=== PATIENT | male | born 1940 | race Caucasian/White ===

== ENCOUNTER 2022-11-29 20:50 | Inpatient (IN) | payer MEDICARE, OTHER ==
[2022-11-29 23:31] LABS: SARS-CoV-2 NAA Rapid Test Not Detected (NotDetected)
[2022-11-30] MEDS ORDERED: HumaLOG 300 UNITS/3 ML VIAL SC PRN ×2 (00:17)
[2022-11-30] MEDS ORDERED: Dextrose 50% Abboject 50 ML SYRINGE SLOW IVP PRN (00:17)
[2022-11-30] MEDS ORDERED: Dextrose 5% in Water 1,000 ML IV PRN (00:17)
[2022-11-30 00:52] VITALS: BMI 30.9
[2022-11-30] MEDS ORDERED: traMADol HCl 50 MG TAB PO PRN (01:08)
[2022-11-30] MEDS ORDERED: Ventolin HFA Inhaler 60 PUFF INHALER INH PRN (01:08)
[2022-11-30] MEDS ORDERED: Sodium Chloride 0.9% 1,000 ML IV SCH (01:15)
[2022-11-30 01:53] LABS: #Basophils 0.1 10x3/uL (0.0-0.2); #Eosinphils 0.1 10x3/uL (0.0-0.5); #Monocytes 0.9 10x3/uL (0.0-1.1); %Basophils 0.6 % (0.0-2.0); %Eosinophils 1.6 % (0.0-6.0); %Lymphocytes 14.1 % (18.0-47.0); %Monocytes 11.1 % (0.0-10.0); %Neutrophils 72.4 % (40.0-75.0); Hemoglobin 12.3 g/dL (13.5-17.5); Mean Corpuscular HGB CONC 33.6 g/dL (32.0-36.0); Mean Corpuscular Hemoglobin 29.7 pg (27.0-33.0); Mean Corpuscular Volume 88.4 fl (81.2-95.1); Platelet Count 127 10x3/uL (150-450); RBC Distribution Width 14.1 % (11.5-14.5); Red Blood Cell (RBC) Count 4.14 10x6/uL (4.32-5.72); White Blood Cell (WBC) Count 8.3 10x3/uL (3.5-10.5)
[2022-11-30 01:59] LABS: ALT (SGPT) 38 U/L (8-55); AST (SGOT) 25 U/L (5-34); Albumin 3.5 g/dL (3.4-4.8); Alkaline Phosphatase 62 U/L (40-110); Anion Gap 14 mmol/L (10-20); BUN (Urea Nitrogen) 34 mg/dL (8.4-25.7); Bilirubin, Total 0.3 mg/dL (0.2-1.2); CRP (Inflammatory) 1.44 mg/dL (= or < 0.5); Calc. Creatinine Clearance 79 mL/min (70-130); Calcium 8.9 mg/dL (7.8-10.44); Carbon Dioxide 24 mmol/L (23-31); Chloride 102 mmol/L (98-107); Estimated GFR 71; Globulin 2.3 g/dL (2.4-3.5); Glucose 155 mg/dL (83-110); Potassium 3.9 mmol/L (3.5-5.1); Protein, Total 5.8 g/dL (5.8-8.1); Sodium 136 mmol/L (136-145)
[2022-11-30] MEDS: Cefepime 2 GM in Sodium Chloride 0.9% 100 ML IVPB SCH ×2 (02:17→17:57)
[2022-11-30] MEDS: Morphine 4 MG/ML VIAL SLOW IVP PRN ×3 (02:30→22:58)
[2022-11-30 04:28] LABS: #Eosinphils 0.1 10x3/uL (0.0-0.5); #Monocytes 0.9 10x3/uL (0.0-1.1); #Neutrophils 5.2 10x3/uL (1.5-8.4); %Basophils 0.5 % (0.0-2.0); %Eosinophils 1.7 % (0.0-6.0); %Lymphocytes 16.7 % (18.0-47.0); %Monocytes 12.1 % (0.0-10.0); %Neutrophils 68.6 % (40.0-75.0); Hemoglobin 11.6 g/dL (13.5-17.5); Mean Corpuscular HGB CONC 33.6 g/dL (32.0-36.0); Mean Corpuscular Hemoglobin 29.5 pg (27.0-33.0); Mean Corpuscular Volume 87.8 fl (81.2-95.1); Mean Platelet Volume 9.9 fl (7.4-10.4); Platelet Count 121 10x3/uL (150-450); Red Blood Cell (RBC) Count 3.93 10x6/uL (4.32-5.72); White Blood Cell (WBC) Count 7.6 10x3/uL (3.5-10.5)
[2022-11-30 04:41] LABS: ALT (SGPT) 36 U/L (8-55); AST (SGOT) 21 U/L (5-34); Albumin 3.4 g/dL (3.4-4.8); Alkaline Phosphatase 59 U/L (40-110); Anion Gap 12 mmol/L (10-20); BUN (Urea Nitrogen) 32 mg/dL (8.4-25.7); Bilirubin, Direct 0.1 mg/dL (0.1-0.3); Bilirubin, Total 0.3 mg/dL (0.2-1.2); Calc. Creatinine Clearance 84 mL/min (70-130); Calcium 8.8 mg/dL (7.8-10.44); Carbon Dioxide 28 mmol/L (23-31); Cardiac Risk 2.8 (Less than 4.5); Chloride 103 mmol/L (98-107); Cholesterol 116 mg/dl (< 200 Desired); Estimated GFR 76; Glucose 129 mg/dL (83-110); HDL Cholesterol 41 mg/dL (>60 Neg Risk); LDL Cholesterol, Calculated 55 mg/dL; Magnesium 2.3 mg/dL (1.6-2.6); Potassium 4.1 mmol/L (3.5-5.1); Protein, Total 5.5 g/dL (5.8-8.1); Sodium 139 mmol/L (136-145); Triglycerides 101 mg/dL (Less than 150)
[2022-11-30] MEDS: Vancomycin 1.5 GRAM/300 ML BAG 1.5 GM in Premix Bag 1 BAG IVPB SCH (04:45)
[2022-11-30] MEDS: Ipratropium/Albuterol 3 ML NEB NEB SCH ×2 (08:58→19:35)
[2022-11-30] MEDS ORDERED: DULoxetine 30 MG CAP PO SCH (09:00)
[2022-11-30] MEDS: Carvedilol 12.5 MG TAB PO SCH ×2 (09:23→20:39)
[2022-11-30] MEDS: Losartan Potassium 50 MG TAB PO SCH (09:23)
[2022-11-30] MEDS: Magnesium Oxide 400 MG TAB PO SCH (09:23)
[2022-11-30] MEDS: Furosemide 40 MG TAB PO SCH ×2 (09:43→17:51)
[2022-11-30 12:47] LABS: Hemoglobin A1c 6.5 % (4.0-6.0)
[2022-11-30] MEDS ORDERED: Dexmedetomidine 200 MCG/2 ML VIAL ONE (14:31)
[2022-11-30] MEDS ORDERED: Lidocaine 2% MPF 10 ML AMP (For Epidural Use) ONE (14:31)
[2022-11-30] MEDS ORDERED: Neomycin-Polymyxin 1 ML AMP ONE (14:32)
[2022-11-30] MEDS ORDERED: Bupivacaine PF 0.5% 30 ML VIAL ONE (14:32)
[2022-11-30] MEDS: Atorvastatin Calcium 20 MG TAB PO SCH (20:39)
[2022-11-30] MEDS: Icosapent Ethyl 1 GM CAPSULE PO SCH (20:39)
[2022-12-01] MEDS: Cefepime 2 GM in Sodium Chloride 0.9% 100 ML IVPB SCH ×2 (03:05→15:29)
[2022-12-01] MEDS: Vancomycin 1.5 GRAM/300 ML BAG 1.5 GM in Premix Bag 1 BAG IVPB SCH (04:15)
[2022-12-01] MEDS: Morphine 4 MG/ML VIAL SLOW IVP PRN ×3 (04:45→12:25)
[2022-12-01 05:28] LABS: ALT (SGPT) 29 U/L (8-55); AST (SGOT) 18 U/L (5-34); Albumin 3.3 g/dL (3.4-4.8); Alkaline Phosphatase 48 U/L (40-110); Anion Gap 11 mmol/L (10-20); BUN (Urea Nitrogen) 19 mg/dL (8.4-25.7); Bilirubin, Total 0.5 mg/dL (0.2-1.2); Calc. Creatinine Clearance 99 mL/min (70-130); Calcium 8.8 mg/dL (7.8-10.44); Carbon Dioxide 27 mmol/L (23-31); Chloride 104 mmol/L (98-107); Estimated GFR 86; Globulin 2.1 g/dL (2.4-3.5); Glucose 112 mg/dL (83-110); Magnesium 2.3 mg/dL (1.6-2.6); Potassium 4.4 mmol/L (3.5-5.1); Protein, Total 5.4 g/dL (5.8-8.1); Sodium 138 mmol/L (136-145)
[2022-12-01 05:29] LABS: #Basophils 0.1 10x3/uL (0.0-0.2); #Eosinphils 0.2 10x3/uL (0.0-0.5); #Monocytes 0.9 10x3/uL (0.0-1.1); #Neutrophils 5.4 10x3/uL (1.5-8.4); %Basophils 0.6 % (0.0-2.0); %Eosinophils 2.6 % (0.0-6.0); %Lymphocytes 16.8 % (18.0-47.0); %Neutrophils 68.7 % (40.0-75.0); Hemoglobin 11.5 g/dL (13.5-17.5); Mean Corpuscular HGB CONC 33.6 g/dL (32.0-36.0); Mean Corpuscular Hemoglobin 30.2 pg (27.0-33.0); Mean Corpuscular Volume 89.8 fl (81.2-95.1); Mean Platelet Volume 9.9 fl (7.4-10.4); Platelet Count 121 10x3/uL (150-450); RBC Distribution Width 14.4 % (11.5-14.5); Red Blood Cell (RBC) Count 3.81 10x6/uL (4.32-5.72); White Blood Cell (WBC) Count 7.8 10x3/uL (3.5-10.5)
[2022-12-01] MEDS: Ipratropium/Albuterol 3 ML NEB NEB SCH ×2 (08:19→20:50)
[2022-12-01] MEDS: Losartan Potassium 50 MG TAB PO SCH (08:57)
[2022-12-01] MEDS: Furosemide 40 MG TAB PO SCH ×2 (08:57→16:54)
[2022-12-01] MEDS: DULoxetine 20 MG CAP PO SCH (08:57)
[2022-12-01] MEDS: Carvedilol 12.5 MG TAB PO SCH ×2 (08:58→20:47)
[2022-12-01] MEDS: Icosapent Ethyl 1 GM CAPSULE PO SCH ×2 (08:58→20:48)
[2022-12-01] MEDS: Magnesium Oxide 400 MG TAB PO SCH (08:58)
[2022-12-01] MEDS: Multivitamin w/Zinc Stress 1 TAB PO SCH (08:58)
[2022-12-01] MEDS: Acetaminophen 325 MG TAB PO PRN ×2 (13:34→22:43)
[2022-12-01] MEDS: traMADol HCl 50 MG TAB PO PRN ×2 (13:34→22:41)
[2022-12-01] MEDS: Atorvastatin Calcium 20 MG TAB PO SCH (20:47)
[2022-12-01] MEDS: CO Q-10 CAPSULE 50 MG PO SCH (20:47)
[2022-12-01] MEDS: Apixaban 5 MG TAB PO SCH (20:47)
[2022-12-01] MEDS ORDERED: NEURIVA PO SCH (21:00)
[2022-12-02] MEDS: Cefepime 2 GM in Sodium Chloride 0.9% 100 ML IVPB SCH ×2 (03:18→15:56)
[2022-12-02 03:46] LABS: #Basophils 0.1 10x3/uL (0.0-0.2); #Eosinphils 0.2 10x3/uL (0.0-0.5); #Monocytes 0.8 10x3/uL (0.0-1.1); #Neutrophils 4.1 10x3/uL (1.5-8.4); %Basophils 0.8 % (0.0-2.0); %Eosinophils 2.9 % (0.0-6.0); %Lymphocytes 20.7 % (18.0-47.0); %Monocytes 11.6 % (0.0-10.0); %Neutrophils 63.7 % (40.0-75.0); Mean Corpuscular HGB CONC 33.6 g/dL (32.0-36.0); Mean Corpuscular Hemoglobin 29.9 pg (27.0-33.0); Mean Corpuscular Volume 88.8 fl (81.2-95.1); Mean Platelet Volume 9.7 fl (7.4-10.4); Platelet Count 131 10x3/uL (150-450); RBC Distribution Width 14.1 % (11.5-14.5); Red Blood Cell (RBC) Count 4.02 10x6/uL (4.32-5.72); White Blood Cell (WBC) Count 6.6 10x3/uL (3.5-10.5)
[2022-12-02 03:53] LABS: Vancomycin, Trough 9.2 ug/mL
[2022-12-02 03:55] LABS: Anion Gap 13 mmol/L (10-20); BUN (Urea Nitrogen) 21 mg/dL (8.4-25.7); Calc. Creatinine Clearance 87 mL/min (70-130); Calcium 9.3 mg/dL (7.8-10.44); Carbon Dioxide 28 mmol/L (23-31); Chloride 102 mmol/L (98-107); Estimated GFR 79; Glucose 155 mg/dL (83-110); Magnesium 2.2 mg/dL (1.6-2.6); Potassium 4.5 mmol/L (3.5-5.1); Sodium 138 mmol/L (136-145)
[2022-12-02] MEDS: VANCOMYCIN 1.75 GM/350 ML BAG 1.75 GM in Premix Bag 1 BAG IVPB SCH (04:36)
[2022-12-02] MEDS: Vancomycin 1.5 GRAM/300 ML BAG 1.5 GM in Premix Bag 1 BAG IVPB SCH (05:29)
[2022-12-02] MEDS: Ipratropium/Albuterol 3 ML NEB NEB SCH ×2 (07:50→22:33)
[2022-12-02] MEDS ORDERED: Non-Formulary Medication 1 EACH (Cranberry [Cranberry] 500 MG Capsule) PO SCH (09:00)
[2022-12-02] MEDS: CO Q-10 CAPSULE 50 MG PO SCH ×2 (09:20→21:44)
[2022-12-02] MEDS: Icosapent Ethyl 1 GM CAPSULE PO SCH ×2 (09:20→21:45)
[2022-12-02] MEDS: Glimepiride 4 MG TAB PO SCH (09:20)
[2022-12-02] MEDS: Furosemide 40 MG TAB PO SCH ×2 (09:20→15:56)
[2022-12-02] MEDS: Apixaban 5 MG TAB PO SCH ×2 (09:21→21:44)
[2022-12-02] MEDS: Empagliflozin 25 MG TAB PO SCH (09:21)
[2022-12-02] MEDS: Carvedilol 12.5 MG TAB PO SCH ×2 (09:21→21:44)
[2022-12-02] MEDS: DULoxetine 20 MG CAP PO SCH (09:21)
[2022-12-02] MEDS: Multivitamin w/Zinc Stress 1 TAB PO SCH (09:21)
[2022-12-02] MEDS: Losartan Potassium 50 MG TAB PO SCH (09:21)
[2022-12-02] MEDS: Magnesium Oxide 400 MG TAB PO SCH (09:21)
[2022-12-02] MEDS: Cholecalciferol 1,000 UNITS (25 MCG) TAB PO SCH (09:21)
[2022-12-02] MEDS: Atorvastatin Calcium 20 MG TAB PO SCH (21:44)
[2022-12-03] MEDS: Cefepime 2 GM in Sodium Chloride 0.9% 100 ML IVPB SCH ×2 (03:02→16:09)
[2022-12-03] MEDS: VANCOMYCIN 1.75 GM/350 ML BAG 1.75 GM in Premix Bag 1 BAG IVPB SCH (04:28)
[2022-12-03 06:07] LABS: #Eosinphils 0.2 10x3/uL (0.0-0.5); #Monocytes 0.7 10x3/uL (0.0-1.1); %Basophils 0.6 % (0.0-2.0); %Eosinophils 2.8 % (0.0-6.0); %Lymphocytes 23.6 % (18.0-47.0); %Monocytes 10.1 % (0.0-10.0); %Neutrophils 62.4 % (40.0-75.0); Hemoglobin 11.8 g/dL (13.5-17.5); Mean Corpuscular HGB CONC 33.5 g/dL (32.0-36.0); Mean Corpuscular Hemoglobin 29.4 pg (27.0-33.0); Mean Corpuscular Volume 87.8 fl (81.2-95.1); Mean Platelet Volume 9.6 fl (7.4-10.4); Platelet Count 130 10x3/uL (150-450); RBC Distribution Width 14.1 % (11.5-14.5); Red Blood Cell (RBC) Count 4.01 10x6/uL (4.32-5.72); White Blood Cell (WBC) Count 6.5 10x3/uL (3.5-10.5)
[2022-12-03 06:17] LABS: Anion Gap 14 mmol/L (10-20); BUN (Urea Nitrogen) 25 mg/dL (8.4-25.7); Calc. Creatinine Clearance 101 mL/min (70-130); Calcium 9.1 mg/dL (7.8-10.44); Carbon Dioxide 25 mmol/L (23-31); Chloride 105 mmol/L (98-107); Estimated GFR 87; Glucose 122 mg/dL (83-110); Magnesium 2.2 mg/dL (1.6-2.6); Potassium 3.5 mmol/L (3.5-5.1); Sodium 140 mmol/L (136-145)
[2022-12-03] MEDS: Ipratropium/Albuterol 3 ML NEB NEB SCH (08:20)
[2022-12-03] MEDS: Glimepiride 4 MG TAB PO SCH (09:47)
[2022-12-03] MEDS: Magnesium Oxide 400 MG TAB PO SCH (09:47)
[2022-12-03] MEDS: Cholecalciferol 1,000 UNITS (25 MCG) TAB PO SCH (09:47)
[2022-12-03] MEDS: CO Q-10 CAPSULE 50 MG PO SCH (09:47)
[2022-12-03] MEDS: Carvedilol 12.5 MG TAB PO SCH (09:48)
[2022-12-03] MEDS: DULoxetine 20 MG CAP PO SCH (09:48)
[2022-12-03] MEDS: Losartan Potassium 50 MG TAB PO SCH (09:48)
[2022-12-03] MEDS: Empagliflozin 25 MG TAB PO SCH (09:48)
[2022-12-03] MEDS: Multivitamin w/Zinc Stress 1 TAB PO SCH (09:48)
[2022-12-03] MEDS: Furosemide 40 MG TAB PO SCH ×2 (09:48→16:09)
[2022-12-03] MEDS: Apixaban 5 MG TAB PO SCH (09:48)
[2022-12-03] MEDS: Icosapent Ethyl 1 GM CAPSULE PO SCH (09:55)
[2022-12-03] MEDS: Morphine 4 MG/ML VIAL SLOW IVP PRN (10:35)
[2022-12-03 14:19] VITALS: BP 136/68; TEMP 96.9
== END 2022-12-03 17:10 | disposition home or self-care (01) | DRG 629 ==
LOC: UNDOADMIN 20:50 → CSHTELE 20:50
PROVIDERS: ADMIT Podiatrist; ATTEND Hospitalist
PROC: 0QBP0ZZ Excision of Left Metatarsal, Open Approach (ICD-10-PCS; principal; 2022-11-30)
PROC: 5A09357 Assistance with Respiratory Ventilation, Less than 24 Consecutive Hours, Continuous Positive Airway Pressure (ICD-10-PCS; 2022-11-30)
DX: E11.69 Type 2 diabetes mellitus with other specified complication (principal); I48.20 Chronic atrial fibrillation, unspecified; L03.116 Cellulitis of left lower limb; M86.172 Other acute osteomyelitis, left ankle and foot; E78.5 Hyperlipidemia, unspecified; K21.9 Gastro-esophageal reflux disease without esophagitis; J45.909 Unspecified asthma, uncomplicated; G47.33 Obstructive sleep apnea (adult) (pediatric); I49.5 Sick sinus syndrome; I87.8 Other specified disorders of veins; E11.621 Type 2 diabetes mellitus with foot ulcer; L97.529 Non-pressure chronic ulcer of other part of left foot with unspecified severity; F32.A Depression, unspecified; E11.628 Type 2 diabetes mellitus with other skin complications; I50.9 Heart failure, unspecified; I11.0 Hypertensive heart disease with heart failure; Z20.822 Contact with and (suspected) exposure to COVID-19; Z79.51 Long term (current) use of inhaled steroids; Z79.84 Long term (current) use of oral hypoglycemic drugs; Z95.0 Presence of cardiac pacemaker; Z79.899 Other long term (current) drug therapy; Z98.890 Other specified postprocedural states; Z90.89 Acquired absence of other organs; Z80.0 Family history of malignant neoplasm of digestive organs; Z80.42 Family history of malignant neoplasm of prostate; Z88.8 Allergy status to other drugs, medicaments and biological substances; E11.649 Type 2 diabetes mellitus with hypoglycemia without coma
CPT/HCPCS: 36415; 36416; 80048; 80053; 80061; 80202; 83036; 83735; 83880; 85025; 85652; 86140; 87040; 87070; 87205; 93005; 93010; 94640; 94760; 97139; J0692; J2270; J3370; J3490; J7050; J7620; S0020; U0002

== ENCOUNTER 2022-12-06 13:27 | Outpatient (CLI) | payer MEDICARE, OTHER | END 2022-12-06 13:28 | disposition home or self-care (01) | LOC: CSHWCC 13:27 | PROVIDERS: ATTEND Nurse Practitioner Family | DX: L97.509 Non-pressure chronic ulcer of other part of unspecified foot with unspecified severity (principal) | CPT/HCPCS: 97605; 99203; G0463 ==

== ENCOUNTER 2022-12-15 15:12 | Outpatient (CLI) | payer MEDICARE, OTHER | END 2022-12-15 15:13 | disposition home or self-care (01) | LOC: CSHWCC 15:12 | PROVIDERS: ATTEND Nurse Practitioner Family | DX: E11.621 Type 2 diabetes mellitus with foot ulcer (principal); L97.429 Non-pressure chronic ulcer of left heel and midfoot with unspecified severity | CPT/HCPCS: 97605 ==

== ENCOUNTER 2022-12-28 13:03 | Outpatient (CLI) | payer MEDICARE, OTHER | END 2022-12-28 13:04 | disposition home or self-care (01) | LOC: CSHWCC 13:03 | PROVIDERS: ATTEND Nurse Practitioner Family | DX: E11.621 Type 2 diabetes mellitus with foot ulcer (principal); L97.429 Non-pressure chronic ulcer of left heel and midfoot with unspecified severity | CPT/HCPCS: 97605 ==

== ENCOUNTER 2024-09-03 09:24 | Day surgery (SDC) | payer MEDICARE, OTHER ==
[2024-08-31 09:25] VITALS: BMI 29.4
[2024-09-03 10:31] LABS: Hematocrit 41.6 % (38.8-50.0); Hemoglobin 13.5 g/dL (13.5-17.5); Mean Corpuscular HGB CONC 32.5 g/dL (32.0-36.0); Mean Corpuscular Hemoglobin 29.1 pg (27.0-33.0); Mean Corpuscular Volume 89.7 fL (81.2-95.1); Mean Platelet Volume 9.3 fL (7.4-10.4); Platelet Count 163 10x3/uL (150-450); Red Blood Cell (RBC) Count 4.64 10x6/uL (4.32-5.72); White Blood Cell (WBC) Count 7.3 10x3/uL (3.5-10.5)
[2024-09-03 10:40] LABS: Anion Gap 15 mmol/L (10-20); BUN (Urea Nitrogen) 35 mg/dL (8.4-25.7); Calc. Creatinine Clearance 53 mL/min (70-130); Calcium 10.4 mg/dL (7.8-10.44); Carbon Dioxide 32 mmol/L (23-31); Chloride 92 mmol/L (98-107); Estimated GFR 46; Glucose 158 mg/dL (83-110); Potassium 3.3 mmol/L (3.5-5.1); Sodium 136 mmol/L (136-145)
[2024-09-03] MEDS ORDERED: CEFAZOLIN 2 GM VIAL ONE (11:59)
[2024-09-03] MEDS ORDERED: Bupivacaine PF 0.5% 30 ML VIAL ONE (11:59)
[2024-09-03] MEDS ORDERED: PROPOFOL 20 ML ONE (12:01)
[2024-09-03] MEDS ORDERED: Lidocaine 2% PF 5 ML VIAL ONE (12:01)
[2024-09-03] MEDS ORDERED: Dexamethasone 4 mg/ml Vial ONE (12:01)
[2024-09-03] MEDS ORDERED: Ondansetron PF 4 MG/2 ML Vial ONE (12:01)
[2024-09-03] MEDS ORDERED: fentaNYL 50 mcg/mL 1 mL Vial ONE (12:02)
[2024-09-03] MEDS ORDERED: Etomidate 40 MG (20 mL) VIAL ONE (12:09)
== END 2024-09-03 14:32 | disposition home or self-care (01) ==
LOC: CSHSDC 09:24
PROVIDERS: ATTEND Podiatrist Foot & Ankle Surgery
PROC: 0QB Lower Bones, Excision (ICD-10-PCS; principal; 2024-09-03)
DX: M25.774 Osteophyte, right foot (principal); L97.512 Non-pressure chronic ulcer of other part of right foot with fat layer exposed; K21.9 Gastro-esophageal reflux disease without esophagitis; F32.A Depression, unspecified; E78.00 Pure hypercholesterolemia, unspecified; E11.621 Type 2 diabetes mellitus with foot ulcer; I11.0 Hypertensive heart disease with heart failure; I50.30 Unspecified diastolic (congestive) heart failure; Z79.899 Other long term (current) drug therapy; Z91.041 Radiographic dye allergy status; Z98.890 Other specified postprocedural states; Z79.84 Long term (current) use of oral hypoglycemic drugs; Z79.01 Long term (current) use of anticoagulants
CPT/HCPCS: 28124; 73630; 80048; 85027; 93005; J0665; J1100; J2405; J2704; J3010; 36415; 93010